=== PATIENT | male | born 1970 | race Caucasian/White ===

== ENCOUNTER 2018-05-12 17:34 | Observation (INO) ==
[2018-05-12] MEDS ORDERED: Sod Chloride 0.9% Inj 1,000 ML IV.SIG SCH (18:00)
--- NOTE | 2018-05-12 18:11 | XR ---
EXAM DATE: 05/12/2018 6:08 PM EST AGE/SEX: 47 years / Male INDICATIONS: . Chest pain CLINICAL DATA: This is the patient's initial encounter. Patient reports that signs and symptoms have been present for 2 days and indicates a pain score of 10/10. MEDICAL/SURGICAL HISTORY: . herniated disc Non-responsive. COMPARISON: No prior exams available for comparison. FINDINGS: PA and lateral views of the chest demonstrate the lungs to be symmetrically aerated without evidence of mass, infiltrate or effusion. The cardiomediastinal contours are unremarkable. Osseous structures are intact. CONCLUSION: Negative examination. Electronically signed by: Donald Sommers MD 05/12/2018 6:09 PM EST
[2018-05-12 18:36] LABS: Baso # (Auto) 0.2 th/mm3 (0.0-0.2); Baso % (Auto) 1.7 % (0.0-2.0); Eos # (Auto) 0.1 th/mm3 (0.0-0.4); Eos % (Auto) 0.7 % (0.0-4.0); Hematocrit 44.3 % (39.0-51.0); Lymph # (Auto) 2.3 th/mm3 (1.0-4.8); Lymph % (Auto) 15.6 % (9.0-44.0); Mean Corpuscular HGB Conc 33.8 % (32.0-36.0); Mean Corpuscular Volume 91.6 fL (80.0-100.0); Mean Platelet Volume 7.9 fL (7.0-11.0); Mono # (Auto) 0.5 th/mm3 (0.0-0.9); Mono % (Auto) 3.8 % (0.0-8.0); Neut # (Auto) 11.3 th/mm3 (1.8-7.7); Neut % (Auto) 78.2 % (16.0-70.0); Platelet Count 415 th/mm3 (150-450); Red Blood Count 4.84 mil/mm3 (4.50-5.90); Red Cell Distribution Width 13.6 % (11.6-17.2); White Blood Count 14.4 th/mm3 (4.0-11.0)
--- NOTE | 2018-05-12 18:40 | ED ---
HPI General Chief Complaint: Chest Pain Stated Complaint: Chest Pain Time Seen by Provider: 05/12/18 17:42 Source: patient Mode of arrival: ambulatory Limitations: no limitations History of Present Illness HPI narrative: A 47-year-old male, past medical history significant for hyperlipidemia and diet-controlled hypertension, smoking, who presents with complaint of chest pain. He states that he was at work lifting something when he had right-sided chest pain that lasted approximately 7-10 minutes and resolved on its own. He did not have any associated dyspnea but did feel generalized weakness at that time. Later he was sitting on the couch talking on the phone, not in a stressful situation, when he again had the same pain that lasted 7-10 minutes and resolved on its own. Again he did not have any dyspnea but did feel some generalized weakness at that time. No numbness. No nausea, vomiting. No fever nor chills. No cocaine use in the last several months. No pain on arrival here. MD complaint: Reports chest pain STEMI Alert: No Onset (ago): minute(s) Duration: intermittent Onset: during rest Pain location: Reports right chest Severity: moderate Quality: Reports aching and heaviness Pain radiation: Reports none Relieving factors: nothing Exacerbating factors: nothing Treatments prior to arrival chest pain: Reports none Related Data Home Medications Medication Instructions Recorded Confirmed cyclobenzaprine 10 mg PO TID 05/12/18 05/12/18 oxycodone-acetaminophen 1 tab PO Q4-6H PRN 05/12/18 05/12/18 Allergies Allergy/AdvReac Type Severity Reaction Status Date / Time No Known Allergies Allergy Verified 05/12/18 17:39 Review of Systems ROS: all other systems reviewed are negative [facility] Medical History Medical History Back pain (Acute) Surgical History Surgical History No history of previous surgery (Acute) Social History Social History Substance History: Past History Second Hand Smoke Exposure: Yes Smoking Status: Current every day smoker Tobacco Type: Cigarettes How Often Do You Have a Drink Containing Alcohol: 2 to 3 times a week Recent Travel in [facility] within the Last 8 Weeks: No Recent Out of Country Travel within the Last 8 Weeks: No Immunization History Tetanus Immunization: Unsure Exam Narrative Exam Narrative: GENERAL: Well-appearing male in no acute distress SKIN: Focused skin assessment warm/dry. No rashes. HEAD: Atraumatic. Normocephalic. EYES: Pupils equal and round. No scleral icterus. No injection or drainage. ENT: No nasal bleeding or discharge. Mucous membranes pink and moist. NECK: Trachea midline. No JVD. CARDIOVASCULAR: Regular rate and rhythm. No murmur appreciated. Intact and equal peripheral pulses. RESPIRATORY: No accessory muscle use. Clear to auscultation. Breath sounds equal bilaterally. GASTROINTESTINAL: Abdomen soft, non-tender, nondistended. Hepatic and splenic margins not palpable. MUSCULOSKELETAL: No obvious deformities. No clubbing. No cyanosis. No edema. NEUROLOGICAL: Awake and alert. No obvious cranial nerve deficits. Motor grossly within normal limits. Normal speech. PSYCHIATRIC: Appropriate mood and affect; insight and judgment normal. Course Consultations Consultation #1: call placed to Dr Vizcaino --publications production supervisor [facility] for INSURANCE CLAIMS SPECIALIST obs to [facility]; agrees with obs legal arbitrator admit per protocol. Initial Documented Vital Signs Temperature 98.3 F 05/12/18 17:35 Pulse Rate 105 H 05/12/18 17:35 Respiratory Rate 16 05/12/18 17:35 Blood Pressure 148/78 H 05/12/18 17:35 Pulse Oximetry 96 05/12/18 17:35 Last Documented Vital Signs Temperature 96.3 F L 05/13/18 04:00 Pulse Rate 73 05/13/18 04:00 Respiratory Rate 20 05/13/18 04:00 Blood Pressure 130/71 05/13/18 04:00 Pulse Oximetry 97 05/13/18 04:00 Sign Out Sign Out Data: Patient Sign Out occurred on 05/12/18 at 19:31. Patient's care was discussed, and care was transferred from Sally Drummond MD to Darya Nascimento MD. Sign Out Comment: Patient with chest pain. EKG nonspecific. Labs pending. Likely chest pain center observation admission. Last updated by Sally Drummond MD at 05/12/18 19:07 Post-Handoff Eval: Accepted in transfer of care from Dr. Drummond for follow-up of pending labs and patient disposition with plan for probable chest pain center observation admission Medical Decision Making MDM Narrative Medical decision making narrative: Patient is a 47-year-old male who presents with complaint of chest pain that felt like an aching heaviness on the right side of his chest not necessarily associated with exertion and twice today lasting approximately 7-10 minutes and resolving on its own. He had generalized weakness but no other symptoms. EKG shows nonspecific ST and T wave changes and there is no old EKG with which to compare. He has been given 324 mg aspirin. He has been pain-free since arrival to the emergency department. Chest x-ray shows no acute cardiopulmonary process. Labs are pending at time of checkout. Accepted in transfer of care from Dr. Drummond for follow-up of pending labs and patient disposition At 7:35 PM lab values found to be grossly within normal range except for white count of 14,400 with 70% neutrophils by automated differential patient has mildly elevated BUN of 26 mm glucose of 147 she is also mildly elevated however patient's troponin I is less than 0.02 not elevated and d-dimer is less than 0.19 not elevated EKG is sinus tachycardia rate of [address] elevation or injury pattern nonspecific ST-T wave changes and chest x-ray reveals no lobar infiltrate. Patient is informed of lab results and plan for recommendation for observation admission for chest pain center per protocol in reference to risk factor profile of male age 47 tobacco use dyslipidemia and diet-controlled hypertension with episodes of chest pain at rest and with exertion x2 today. Patient is agreeable to stay for [facility] protocol. Medical Screen Exam Complete: Yes Emergency Medical Condition: Yes Differential Diagnosis Differential Diagnosis: Differential diagnosis includes but is not limited to acute coronary syndrome, muscle spasm, pneumonia, pneumothorax. Medical Records Medical records reviewed: Yes I reviewed the patient's medical records. Lab Data Result diagrams: 05/12/18 18:10 05/12/18 18:10 Lab Results 05/12/18 05/12/18 05/12/18 Range/Units 18:10 18:10 18:10 CBC w Diff Auto diff final WBC 14.4 H (4.0-11.0) th/mm3 RBC 4.84 (4.50-5.90) mil/mm3 Hgb 15.0 (13.0-17.0) gm/dL Hct 44.3 (39.0-51.0) % MCV 91.6 (80.0-100.0) fL MCH 31.0 (27.0-34.0) pg MCHC 33.8 (32.0-36.0) % RDW 13.6 (11.6-17.2) % Plt Count 415 (150-450) th/mm3 MPV 7.9 (7.0-11.0) fL Neut % (Auto) 78.2 H (16.0-70.0) % Lymph % (Auto) 15.6 (9.0-44.0) % Jasper % (Auto) 3.8 (0.0-8.0) % Eos % (Auto) 0.7 (0.0-4.0) % Baso % (Auto) 1.7 (0.0-2.0) % Neut # (Auto) 11.3 H (1.8-7.7) th/mm3 Lymph # (Auto) 2.3 (1.0-4.8) th/mm3 Jasper # (Auto) 0.5 (0.0-0.9) th/mm3 Eos # (Auto) 0.1 (0.0-0.4) th/mm3 Baso # (Auto) 0.2 (0.0-0.2) th/mm3 WBC Differential . Differential Comment . D-Dimer Quant (PE/DVT) Less than 0.19 (0.00-0.50) mg/L FEU Sodium 141 (136-145) meq/L Potassium 3.5 (3.5-5.1) meq/L Chloride 107 (98-107) meq/L Carbon Dioxide 25.0 (21.0-32.0) meq/L Anion Gap 9 (5-15) meq/L BUN 26 H (7-18) mg/dL Creatinine 0.90 (0.60-1.30) mg/dL Estimated GFR Greater than 89 (>89) mL/min Random Glucose 147 H (74-106) mg/dL Calcium 8.3 L (8.5-10.1) mg/dL Total Bilirubin 0.2 (0.2-1.0) mg/dL AST 17 (15-37) U/L ALT 36 (12-78) U/L Alkaline Phosphatase 120 H (45-117) U/L Total Creatine Kinase (39-308) U/L Troponin I Less than 0.02 L (0.02-0.05) ng/mL Total Protein 7.1 (6.4-8.2) g/dL Albumin 3.9 (3.4-5.0) g/dL 05/12/18 05/12/18 05/13/18 Range/Units 18:10 21:00 00:30 CBC w Diff WBC (4.0-11.0) th/mm3 RBC (4.50-5.90) mil/mm3 Hgb (13.0-17.0) gm/dL Hct (39.0-51.0) % MCV (80.0-100.0) fL MCH (27.0-34.0) pg MCHC (32.0-36.0) % RDW (11.6-17.2) % Plt Count (150-450) th/mm3 MPV (7.0-11.0) fL Neut % (Auto) (16.0-70.0) % Lymph % (Auto) (9.0-44.0) % Jasper % (Auto) (0.0-8.0) % Eos % (Auto) (0.0-4.0) % Baso % (Auto) (0.0-2.0) % Neut # (Auto) (1.8-7.7) th/mm3 Lymph # (Auto) (1.0-4.8) th/mm3 Jasper # (Auto) (0.0-0.9) th/mm3 Eos # (Auto) (0.0-0.4) th/mm3 Baso # (Auto) (0.0-0.2) th/mm3 WBC Differential Differential Comment D-Dimer Quant (PE/DVT) (0.00-0.50) mg/L FEU Sodium (136-145) meq/L Potassium (3.5-5.1) meq/L Chloride (98-107) meq/L Carbon Dioxide (21.0-32.0) meq/L Anion Gap (5-15) meq/L BUN (7-18) mg/dL Creatinine (0.60-1.30) mg/dL Estimated GFR (>89) mL/min Random Glucose (74-106) mg/dL Calcium (8.5-10.1) mg/dL Total Bilirubin (0.2-1.0) mg/dL AST (15-37) U/L ALT (12-78) U/L Alkaline Phosphatase (45-117) U/L Total Creatine Kinase 78 65 (39-308) U/L Troponin I Cancelled Less than 0.02 L Less than 0.02 L (0.02-0.05) ng/mL Total Protein (6.4-8.2) g/dL Albumin (3.4-5.0) g/dL Imaging Data Attestation: I personally reviewed and interpreted this imaging study as follows : My impression: No acute cardiopulmonary process. Radiologist's impression: Chest X-Ray 05/12/18 17:58 CONCLUSION: Negative examination. ECG Data EKG Prior to Arrival: No Attestation: I personally reviewed and interpreted this ECG as follows: (Sinus tachycardia at a rate of [address] and T wave changes. No previous EKG with which to compare.) Prior ECG tracings: not available for review Discharge Plan Discharge Disposition Patient Disposition: ED Admit(ED Internal Use Only) Discharge Condition Condition: Stable Discharge Order Discharge Orders: AMA Discharge (Routine); Ordered 05/13/18 Ordered By: Ila Alberts Discharge Details Diagnosis: Chest pain Physicians Team ED Provider: Darya Nascimento Primary Care Provider: Primary Care Kings,Melissa Attending Provider: Donald Kearney ED Status: Left Department Discharge Information Discharge Date/Time: 05/12/18 21:15
[2018-05-12 18:46] LABS: Chloride 107 meq/L (98-107); Potassium 3.5 meq/L (3.5-5.1); Sodium 141 meq/L (136-145)
[2018-05-12 18:49] LABS: Calcium 8.3 mg/dL (8.5-10.1)
[2018-05-12 18:50] LABS: Albumin 3.9 g/dL (3.4-5.0); Anion Gap 9 meq/L (5-15); Blood Urea Nitrogen 26 mg/dL (7-18); Glucose,Random 147 mg/dL (74-106)
[2018-05-12 18:52] LABS: Alanine Aminotransferase 36 U/L (12-78)
[2018-05-12 18:53] LABS: Aspartate Aminotransferase 17 U/L (15-37); Glomerular Filtration Rate Greater Than 89 mL/min (>89)
[2018-05-12 18:54] LABS: Total Protein 7.1 g/dL (6.4-8.2)
[2018-05-12 18:55] LABS: Alkaline Phosphatase 120 U/L (45-117)
[2018-05-12 21:37] VITALS: RESP 20
[2018-05-12 21:46] LABS: Creatine Kinase 78 U/L (39-308)
[2018-05-13 01:33] LABS: Creatine Kinase 65 U/L (39-308)
[2018-05-13 06:02] VITALS: BP 130/71; PULSE 73; TEMP 96.3; O2SAT 97
--- NOTE | 2018-05-13 07:27 | P.AMA ---
AMA Note AMA Statement: Patient Wisam Amaral has decided to leave the hospital against medical advice. This patient has the capacity to refuse care and understands the risks of leaving, including permanent disability and/or , and has had an opportunity to ask questions about his/her condition. The patient has been informed that he/she may return for care at any time, and follow up has been arranged/advised. Discharge Disposition: 01 Discharge Home Patient Condition on Discharge: Stable
[2018-05-13] MEDS ORDERED: Influenza (Quadrivalent) Vaccine 0.5 ML Syringe IM ONE (09:00)
[2018-05-13] MEDS ORDERED: Aspirin 325 MG Tablet PO SCH (09:00)
--- NOTE | 2018-05-13 12:55 | ECG ---
Date Performed: 05/12/2018 Time Performed: 17:45:42 PTAGE: 47 years EKG: SINUS TACHYCARDIA NONSPECIFIC ST & T-WAVE ABNORMALITY ABNORMAL RHYTHM ECG Since the previou s tracing, no significant change noted NO PREVIOUS TRACING DOCTOR: Umberto Finch Interpretating Date/Time 05/13/2018 12:54:34
--- NOTE | 2018-05-13 12:55 | ECG ---
Date Performed: 05/12/2018 Time Performed: 21:10:59 PTAGE: 47 years EKG: Sinus rhythm NONSPECIFIC T-WAVE ABNORMALITY BORDERLINE ECG Since the PREVIOUS TRACING , no significant change noted PREVIOUS TRACIN05/12/2018 17.45 DOCTOR: Umberto Finch Interpretating Date/Time 05/13/2018 12:54:44
--- NOTE | 2018-05-13 12:56 | ECG ---
Date Performed: 05/13/2018 Time Performed: 00:09:06 PTAGE: 47 years EKG: Sinus rhythm NORMAL ECG Since the PREVIOUS TRACING , no significant change noted PREVIOUS TRACIN05/12/2018 21.10 DOCTOR: Umberto Finch Interpretating Date/Time 05/13/2018 12:54:55
== END 2018-05-13 08:13 | disposition left against medical advice (07) ==
LOC: PHEDA 17:34 → PHED 17:34 → PH3 21:15
PROVIDERS: ADMIT Internal Medicine; ATTEND Internal Medicine